=== PATIENT | female | born 1985 | race African-American/Black ===

== ENCOUNTER → 2019-04-06 | Outpatient (CLI) | payer MEDICARE, OTHER ==
[2019-04-06 14:16] LABS: Basophils % (A) 0 %; Eosinophils # (A) 0.3 k/uL (0-0.7); Eosinophils % (A) 3 %; HCT 43.7 % (34.0-46.0); HGB 13.5 gm/dL (11.4-16.0); Lymphocytes % (A) 26 %; MCH 26.3 pg (25.0-35.0); MCHC 30.8 g/dL (31.0-37.0); MCV 85.2 fL (80.0-100.0); Mean Platelet Volume 7.5; Monocytes # (A) 0.5 k/uL (0-1.0); Monocytes % (A) 4 %; Neutrophils # (A) 7.8 k/uL (1.3-7.7); Neutrophils % (A) 66 %; Platelet Count 279 k/uL (150-450); RBC 5.13 m/uL (3.80-5.40); RDW 13.2 % (11.5-15.5); WBC 11.8 k/uL (3.8-10.6)
[2019-04-06 14:26] LABS: Calcium 8.9 mg/dL (8.4-10.2); Potassium 3.8 mmol/L (3.5-5.1)
== END | disposition home or self-care (01) ==
LOC: LABPAT 12:51
PROVIDERS: ATTEND Obstetrics & Gynecology
DX: Z01.812 Encounter for preprocedural laboratory examination (principal); I10 Essential (primary) hypertension
CPT/HCPCS: 36415; 80048; 85025; 86850; 86900; 86901; 93005

== ENCOUNTER 2019-04-09 05:32 | Day surgery (SDC) | payer MEDICARE, OTHER ==
[2019-04-06 12:54] VITALS: BMI 42.3
--- NOTE | 2019-04-08 16:31 | P.HPOB ---
History of Present Illness H&P Date: 04/08/19 Chief Complaint: menorrhagia, family history of +BRCA 33 year old G0 presents for total laparoscopic hysterectomy bilateral salpingo- oopherectomy using da cooper and diagnostic cystoscopy for menorrhagia with irregular cycles and family history of BRCA+ ovarian and breast cancer in his mother. Review of Systems All systems: negative Constitutional: Denies chills, Denies fever Eyes: denies blurred vision, denies pain Ears, nose, mouth and throat: Denies headache, Denies sore throat Cardiovascular: Denies chest pain, Denies shortness of breath Respiratory: Denies cough Gastrointestinal: Denies abdominal pain, Denies diarrhea, Denies nausea, Denies vomiting Genitourinary: Denies dysuria, Denies hematuria Musculoskeletal: Denies myalgias Integumentary: Denies pruritus, Denies rash Neurological: Denies numbness, Denies weakness Psychiatric: Denies anxiety, Denies depression Endocrine: Denies fatigue, Denies weight change Past Medical History Past Medical History: Asthma, GERD/Reflux, Hypertension Additional Past Medical History / Comment(s): transgender History of Any Multi-Drug Resistant Organisms: None Reported Past Surgical History: No Surgical Hx Reported Additional Past Anesthesia/Blood Transfusion Reaction / Comment(s): Has never had anesthesia. Past Psychological History: PTSD Smoking Status: Never smoker Past Alcohol Use History: Occasional Past Drug Use History: Marijuana Additional Drug Use History / Comment(s): CBD Oil once daily. Aware no use 24 hrs prior to procedure. - Past Family History Mother Family Medical History: Cancer Father Family Medical History: Cancer Medications and Allergies Home Medications Medication Instructions Recorded Confirmed Type Testosterone 0.5 mg SQ TU 04/06/19 04/06/19 History Allergies Allergy/AdvReac Type Severity Reaction Status Date / Time No Known Allergies Allergy Verified 04/06/19 12:57 Exam Osteopathic Statement: *. No significant issues noted on an osteopathic structural exam other than those noted in the History and Physical/Consult. HEart: RRR Lungs: CTAB Abdomen: soft, nontender Extremeties: neg shazia's Assessment and Plan (1) Menorrhagia with irregular cycle Status: Acute Code(s): N92.1 - EXCESSIVE AND FREQUENT MENSTRUATION WITH IRREGULAR CYCLE SNOMED Code(s): 546028444 (2) Family history of BRCA gene positive Status: Acute Code(s): Z84.81 - FAMILY HISTORY OF CARRIER OF GENETIC DISEASE SNOMED Code(s): 24711874677077 Plan: 1. TL BSO using da cooper and diagnostic cystoscopy, possible total abdominal hysterectomy bilateral salpingo-oopherectomy
[~2019-04-09 05:32] MED LIST: DEXAMETHASONE SOD PHOSPHATE 10 MG/ML 1 ML VIAL IV ONE; ONDANSETRON 4 MG/2 ML VIAL IVP ONE; ONDANSETRON 4 MG/2 ML VIAL IVP PRN; ceFAZolin 3 GM in SODIUM CHLORIDE 0.9% 100 ML IVPB ONE
[2019-04-09] MEDS: LACTATED RINGERS 1,000 ML IV SCH ×2 (06:16→23:06)
[2019-04-09] MEDS ORDERED: ONDANSETRON 4 MG/2 ML VIAL ONE (07:09)
[2019-04-09] MEDS ORDERED: SUCCINYLCHOLINE CHLORIDE VIAL 200 MG/10 ML VIAL IV ONE (07:09)
[2019-04-09] MEDS ORDERED: fentaNYL (PF) 50 MCG/ML 2 ML AMP ONE (07:09)
[2019-04-09] MEDS ORDERED: PROPOFOL 10 MG/ML 20 ML VIAL IV ONE (07:09)
[2019-04-09] MEDS ORDERED: MIDAZOLAM 2 MG/2 ML VIAL ONE (07:09)
[2019-04-09] MEDS ORDERED: GLYCOPYRROLATE 0.2 MG/ML 2 ML VIAL ONE (07:09)
[2019-04-09] MEDS ORDERED: LIDOCAINE 1% INJ 10MG/ML (20 ML MDV) ONE (07:09)
[2019-04-09] MEDS ORDERED: NEOSTIGMINE 1 MG/ML 10 ML VIAL ONE (07:09)
[2019-04-09] MEDS ORDERED: ROCURONIUM BROMIDE 10 MG/ML 10 ML VIAL IV ONE (07:09)
[2019-04-09] MEDS ORDERED: BUPIVACAINE (PF) 0.25% 30 ML VIAL SQ ONE ×2 (07:55→08:21)
--- NOTE | 2019-04-09 08:47 | P.OP ---
Date of Procedure: 04/09/19 Preoperative Diagnosis: 1. menorrhagia with irregular cycle 2. family history of breast and ovarian cancer with BRCA+ Postoperative Diagnosis: 1. menorrhagia with irregular cycle 2. family history of breast and ovarian cancer with BRCA+ Procedure(s) Performed: Total laparoscopic hysterectomy bilateral salpingo-oophorectomy using da Wm with diagnostic cystoscopy Anesthesia: ELEONORA Surgeon: Cassidy Muhammad Supply Chain Logistics Manager #1: Nilesh Wheeler Estimated Blood Loss (ml): 10 IV fluids (ml): 600 Urine output (ml): 100 Pathology: other (Uterus, cervix, bilateral tubes and ovaries) Condition: stable Disposition: PACU Operative Findings: Normal uterus, tubes, ovaries Description of Procedure: Patient taken the operating room where general anesthesia was obtained without difficulty. She is prepped and draped in normal sterile fashion dorsal lithotomy position, legs placed in the Hermilo stirrups. Weighted speculum placed in the vagina and the anterior lip the cervix was grasped with single-tooth tenaculum. The uterus sounded to 8 cm and the cervix diameter was 3.5 cm. The appropriate manipulator tip and ring were placed on the Stacey manipulator. The Stacey manipulator was then placed in the uterus. Molina catheter was also placed. Attention was then turned to the abdomen and gloves were changed. A 5 mm supraumbilical incision was made the scalpel and a 5 mm optical trocar was placed under direct visualization. 10 cm to the right of this and 2 cm down a 5 mm incision was made and 8 mm da Wm port was placed under direct visualization. Same measurements on the opposite side of the patient's abdomen, the 5 mm incision was made and 8 mm da Wm port was placed under direct visualization. In the left upper quadrant a 10 mm incision was made and a 10 mm optical trocar was placed under direct visualization. The 5 mm optical trocar was then replaced with the 8 mm da Wm camera port. The robot was docked on patient's right side. The camera was introduced and then the monopolar curved scissor and [place] bipolar placed under direct visualization. I broke scrub and went to the physician console. The left infundibulopelvic ligament was cauterized with the [place] bipolar and cut with monopolar curved scissors. The left round ligament was cauterized with the [place] bipolar and cut with monopolar curved scissors. The posterior leaf of the broad ligament was taken down using the monopolar curved scissors. Anterior leaf of the broad ligament was then taken down using the monopolar curved scissors. The uterine artery was cauterized with the [place] bipolar and cut with monopolar curved scissors. The bladder flap was then started using the monopolar curved scissors. Attention was then turned to the right side of the patient's anatomy and the right infundibular pelvic ligament was cauterized with the [place] bipolar and cut with monopolar curved scissors. The right round ligament was cauterized with the [place] bipolar and cut with monopolar curved scissors. Posterior leaf of the broad ligament was taken down using the monopolar curved scissors and the anterior leaf was taken down using the monopolar curved scissors. The uterine artery was cauterized the [place] bipolar cut with monopolar curved scissors. The bladder flap was then finished on this side. Anterior colpotomy was made using the monopolar curved scissors. The rest of the uterus was from the vaginal cuff by following the ring around with the monopolar curved scissors through the uterosacral ligaments back to the anterior portion. Once the uterus and cervix were amputated they were pulled through the vaginal cuff. Hemostasis was assured. The instruments were changed for the Cardier forcep and the balta suture cut. The vaginal cuff was then closed using O stratafix barbed suture in a running fashion. Hemostasis was again assured and the pelvis was irrigated. All instruments were removed from the abdomen and the robot was undocked. I scrubbed back in to perform a cystoscopy. There were jets from both ureteral orifices. The abdominal incisions were closed with 4-0 Vicryl in a subcuticular fashion. Patient tolerated the procedure well, sponge and instrument counts correct 2 and she was taken to recovery room in stable condition condition.
[2019-04-09] MEDS: HYDROmorphone 0.5 MG/0.5 ML SYRINGE IVP PRN ×3 (09:09→09:42)
[2019-04-09] MEDS ORDERED: LACTATED RINGERS 1,000 ML IV ONE (09:15)
[2019-04-09] MEDS ORDERED: KETOROLAC 30 MG/ML 1 ML VIAL IVP ONE (09:20)
[2019-04-09] MEDS ORDERED: ONDANSETRON 4 MG/2 ML VIAL IVP PRN (11:10)
[2019-04-09] MEDS ORDERED: SIMETHICONE 80 MG CHEWABLE PO PRN (11:10)
[2019-04-09] MEDS ORDERED: Acetaminophen-Codeine 300-30mg TAB PO PRN ×2 (11:10)
[2019-04-09] MEDS ORDERED: KETOROLAC 30 MG/ML 1 ML VIAL IVP PRN (11:10)
[2019-04-09] MEDS ORDERED: METOCLOPRAMIDE 5 MG/ML 2 ML VIAL IVP PRN (11:10)
[2019-04-09] MEDS ORDERED: IBUPROFEN 600 MG TAB PO PRN (11:10)
[2019-04-09] MEDS: SENNOSIDES-DOCUSATE SODIUM 1 EACH TAB PO SCH ×2 (12:18→20:41)
[2019-04-10] MEDS: SENNOSIDES-DOCUSATE SODIUM 1 EACH TAB PO SCH (07:40)
[2019-04-10 07:44] LABS: Basophils % (A) 0 %; Eosinophils # (A) 0.1 k/uL (0-0.7); Eosinophils % (A) 0 %; HCT 39.4 % (34.0-46.0); HGB 12.5 gm/dL (11.4-16.0); Lymphocytes # (A) 3.2 k/uL (1.0-4.8); Lymphocytes % (A) 19 %; MCH 26.5 pg (25.0-35.0); MCHC 31.8 g/dL (31.0-37.0); MCV 83.3 fL (80.0-100.0); Mean Platelet Volume 7.5; Monocytes # (A) 1.1 k/uL (0-1.0); Monocytes % (A) 7 %; Neutrophils # (A) 12.3 k/uL (1.3-7.7); Neutrophils % (A) 73 %; Platelet Count 269 k/uL (150-450); RBC 4.73 m/uL (3.80-5.40); RDW 13.4 % (11.5-15.5); WBC 16.9 k/uL (3.8-10.6)
[2019-04-10 08:12] VITALS: BP 138/82; PULSE 95; RESP 16; TEMP 97.4
--- NOTE | 2019-04-10 12:27 | P.DS ---
Providers Expected date of discharge: 04/10/19 Attending physician: Cassidy Muhammad Primary care physician: Stated None - Discharge Diagnosis(es) (1) Menorrhagia with irregular cycle Status: Resolved (2) Family history of BRCA gene positive Status: Acute (3) History of robot-assisted laparoscopic hysterectomy Status: Acute Hospital Course: Patient presented for total up prescription is recommended bilateral salpingo- oophorectomy with da Wm. He underwent this procedure without complication. He is ambulating voiding without difficulty, tolerating regular diet and passing flatus. Pain is well-controlled. He'll be discharged home postoperative day #1 in stable condition to follow-up with me in 3 weeks. Plan - Discharge Summary Discharge Rx Participant: Yes New Discharge Prescriptions: New Ibuprofen [Motrin] 600 mg PO Q6HR PRN #30 tab PRN Reason: Mild Discomfort Acetaminophen-Codeine 300-30mg [Tylenol w/codeine #3] 2 each PO Q6HR PRN #20 tab PRN Reason: Severe Pain No Action Testosterone 0.5 mg SQ TU Discharge Medication List Testosterone 0.5 mg SQ TU 04/06/19 [History] Acetaminophen-Codeine 300-30mg [Tylenol w/codeine #3] 2 each PO Q6HR PRN #20 tab 04/10/19 [Rx] Ibuprofen [Motrin] 600 mg PO Q6HR PRN #30 tab 04/10/19 [Rx] Follow up Appointment(s)/Referral(s): Cassidy Muhammad DO [Doctor of Osteopathic Medicine] - 05/04/19 1:30 pm Patient Instructions/Handouts: Vaginal Hysterectomy (DC) Discharge Disposition: HOME SELF-CARE
[2019-04-14] MEDS ORDERED: TESTOSTERONE SQ SCH (09:00)
== END 2019-04-10 11:23 | disposition home or self-care (01) ==
LOC: OR 05:32 → 4SSUR 10:29 → OR 04-10 11:23
PROVIDERS: ATTEND Obstetrics & Gynecology
DX: N92.1 Excessive and frequent menstruation with irregular cycle (principal); N83.202 Unspecified ovarian cyst, left side; N83.201 Unspecified ovarian cyst, right side; N83.8 Other noninflammatory disorders of ovary, fallopian tube and broad ligament; I10 Essential (primary) hypertension; J45.909 Unspecified asthma, uncomplicated; K21.9 Gastro-esophageal reflux disease without esophagitis; E66.9 Obesity, unspecified; F43.10 Post-traumatic stress disorder, unspecified; Z87.890 Personal history of sex reassignment; Z84.81 Family history of carrier of genetic disease; Z80.3 Family history of malignant neoplasm of breast; Z80.41 Family history of malignant neoplasm of ovary; Z79.890 Hormone replacement therapy; Z68.41 Body mass index [BMI] 40.0-44.9, adult
CPT/HCPCS: 81025; 85025; 88307; 58571; J2250; J0330; J1100; J2710; J0690; J2405; J2001; J3010; J1885; J2704; J1170; 86850; 86900; 86901